=== PATIENT | male | born 1965 | race African-American/Black ===

== ENCOUNTER 2017-03-03 18:16 | Emergency (ER) | payer SELFPAY ==
[~2017-03-03] VITALS: Ht 188 cm; Wt 91.0 kg
[2017-03-03 23:15] VITALS: BP 152/88
== END 2017-03-03 23:15 | disposition home or self-care (01) ==
LOC: ER 18:16
DX: S82.832A Other fracture of upper and lower end of left fibula, initial encounter for closed fracture (principal); W22.01XA Walked into wall, initial encounter; Y93.89 Activity, other specified; Y92.89 Other specified places as the place of occurrence of the external cause; Y99.8 Other external cause status
CPT/HCPCS: 29515; 73590; 73610; 99284

== ENCOUNTER 2017-03-04 17:21 | Emergency (ER) | payer SELFPAY ==
[~2017-03-04] VITALS: Ht 180.3 cm; Wt 91.0 kg
[2017-03-04 17:34] VITALS: BP 158/98
== END 2017-03-04 19:26 | disposition home or self-care (01) ==
LOC: ER 17:21
DX: S82.402D Unspecified fracture of shaft of left fibula, subsequent encounter for closed fracture with routine healing (principal); V09.9XXD Pedestrian injured in unspecified transport accident, subsequent encounter
CPT/HCPCS: 99283